=== PATIENT | female | born 1990 | race Hispanic/Latino ===

== ENCOUNTER 2017-03-12 19:02 | Outpatient (CLI) | payer MEDICAID ==
[2017-03-12 20:08] VITALS: BP 114/66
[2017-03-12] MEDS ORDERED: LACTATED RINGERS 500 ML IV ONE (20:30)
[2017-03-12 20:51] LABS: Urine Drugs of Abuse Note Disclamer
[2017-03-12 21:03] LABS: Bacteria,Urine 2+ /HPF (Negative); Bilirubin,Urine NEG (Negative); Blood,Urine NEG (Negative); Ketones,Urine NEG (Negative); Leukocyte Esterase,Urine MOD (Negative); Mucus,Urine FEW /HPF; Nitrite,Urine NEG (Negative); Protein,Urine <15 mg/dL mg/dL (Negative)
--- NOTE | 2017-03-13 09:39 | Ultrasound Report ---
OB ULTRASOUND History: No care, rupture of membranes Technique: Transabdominal ultrasound with Doppler interrogation. Gestation: Single Position: Cephalic Amniotic Fluid: Normal AMANDA = 13.5 cm Placenta: Anterior Placental Grade: 2 Heart Rate: 158 BPM Cervical length: 4.2 cm (Normal > 3 cm) NEUROANATOMY VISUALIZED: Choroid Plexus Cisterna Magnum Cerebellum Lateral Ventricle ANATOMY VISUALIZED: Stomach Kidneys Bladder Diaphragm 4 Chamber Heart Heart 3 Vessel Cord SPINE VISUALIZED: Limited spine due to position The following are not demonstrated due to maternal body habitus or lie: Umbilical cord insertion, spine BPD: 5.2 cm = 21 w 6 d HC: 20.8 cm = 22 w 6 d AC: 18.6 cm = 23 w 2 d FL: 3.9 cm = 22 w 3 d HC/AC Ratio: 1.12 Cephalic Index: 72.9 Estimated Weight: 541 grams LMP: 10/10/16 Clinical age = 21 w 6 d EDC: 07/17/17 US Gest. Age = 22 w or d EDC: 07/12/17
== END 2017-03-12 22:23 | disposition home or self-care (01) ==
LOC: TRG 19:02
PROVIDERS: ATTEND Obstetrics & Gynecology
DX: O47.02 False labor before 37 completed weeks of gestation, second trimester (principal); Z3A.24 24 weeks gestation of pregnancy
CPT/HCPCS: 76805; 80307; 81001; J7120